=== PATIENT | female | born 1975 | race Asian ===

== ENCOUNTER 2016-11-26 11:45 | Emergency (ER) | payer BC, OTHER ==
[2016-11-26 11:50] VITALS: BP 131/73; PULSE 79; TEMP 98.3; BMI 20.5
[2016-11-26] MEDS ORDERED: IBUPROFEN 400 MG TABLET (FP) PO ONE ×2 (12:27→12:29)
--- NOTE | 2016-11-26 12:27 | PDOC ---
History of Present Illness - General Chief Complaint: Pain Stated Complaint: TOOTHACHE, SWOLLEN GUMS Time Seen by Provider: 11/26/16 12:08 History Source: Patient - History of Present Illness Timing/Duration: other Severity: moderate Associated Symptoms: denies: fever/chills Past History - Past Medical History Allergies/Adverse Reactions: Allergies Allergy/AdvReac Type Severity Reaction Status Date / Time No Known Drug Allergies Allergy Verified 11/26/16 11:50 Home Medications: Ambulatory Orders NK [No Known Home Medication] 11/26/16 Anemia: No Asthma: Yes Cancer: No Cardiac Disorders: No CVA: No COPD: No CHF: No Dementia: No Diabetes: No GI Disorders: No Disorders: No HTN: No Hypercholesterolemia: No Liver Disease: No Seizures: No Thyroid Disease: No - Surgical History Abdominal Surgery: (OVARIAN FIBROIDS) Appendectomy: No Cholecystectomy: No Lung Surgery: Yes (INFECTION; PIECE "CUT OUT" FROM RIGHT) Orthopedic Surgery: Yes (ARTHROSCOPIC LEFT KNEE) - Psycho/Social/Smoking Cessation Hx Suicidal Ideation: No Smoking History: Never smoked Have you smoked in the past 12 months: No Information on smoking cessation initiated: No Hx Alcohol Use: No Drug/Substance Use Hx: No Substance Use Type: None Hx Substance Use Treatment: No Review of Systems - Review of Systems Constitutional: No: Chills, Fever HEENTM: Yes: Dental Problems *Physical Exam - Vital Signs Last Vital Signs Temp Pulse Resp BP Pulse Ox 98.3 F 79 18 131/73 100 11/26/16 11:47 11/26/16 11:47 11/26/16 11:47 11/26/16 11:47 11/26/16 11:47 - Physical Exam General Appearance: Yes: Appropriately Dressed. No: Apparent Distress HEENT: positive: Normal Voice, Other (minimal swelling to R submandibular area w / corresponding ttp to gumline of R lower and premolar/1st molar, no fluctuance/ discharge) Neck: positive: Supple. negative: Lymphadenopathy (R), Lymphadenopathy (L) Respiratory/Chest: negative: Respiratory Distress Integumentary: positive: Dry, Warm Neurologic: positive: Fully Oriented, Alert, Normal Mood/Affect Medical Decision Making - Medical Decision Making 11/26/16 12:28 41-year-old female, denies any past medical history, here with toothache. Patient states pain located to right lower tooth 2 days ago, unsure exactly which tooth and has since noticed facial swelling on the right. No recent dental procedure, trauma, fever or chills. Pt well ap and stable w/ minimal swelling to R submandibular area w/ minimal ttp to gumline surrounding R lower 2nd premolar and 1st molar, no fluctuance/discharge. Concern for ? early abscess. Pain control and [facility] [place] 11/26/16 12:34 *DC/Admit/Observation/Transfer Diagnosis at time of Disposition: Tooth ache - Discharge Dispostion Disposition: HOME Condition at time of disposition: Stable - Patient Instructions Printed Discharge Instructions: DI for Dental Pain Additional Instructions: Please report to following dental clinic: [facility] [address] [place] [address]
== END 2016-11-26 12:31 | disposition home or self-care (01) ==
LOC: JERFT 11:45
DX: K08.89 Other specified disorders of teeth and supporting structures (principal)
CPT/HCPCS: 99281-25

== ENCOUNTER 2017-11-26 16:13 | Emergency (ER) | payer OTHER ==
--- NOTE | 2017-11-26 16:21 | PDOC ---
Rapid Medical Evaluation Time Seen by Provider: 11/26/17 16:17 Medical Evaluation: Allergies Allergy/AdvReac Type Severity Reaction Status Date / Time No Known Drug Allergies Allergy Verified 11/26/16 11:50 11/26/17 16:18 The patient presents with a chief complaint of: Accident at work, cut hand with knife. I have performed a brief in-person evaluation of this patient; Pertinent physical exam findings: 2cm Laceration to L thenar eminence. Able to flex and extend the thumb. Last tetanus 2010 I have ordered the following: Nothing The patient will proceed to the ED for further evaluation.
[2017-11-26 16:22] VITALS: BP 127/77; PULSE 75; TEMP 98.6; BMI 19.7
--- NOTE | 2017-11-26 17:08 | PDOC ---
History of Present Illness - General Chief Complaint: Injury Stated Complaint: LACERATION Time Seen by Provider: 11/26/17 16:17 History Source: Patient - History of Present Illness Timing/Duration: reports: this afternoon Past History - Past Medical History Allergies/Adverse Reactions: Allergies Allergy/AdvReac Type Severity Reaction Status Date / Time No Known Drug Allergies Allergy Verified 11/26/17 16:22 Home Medications: Ambulatory Orders NK [No Known Home Medication] 11/26/16 Anemia: No Asthma: Yes Cancer: No Cardiac Disorders: No CVA: No COPD: No CHF: No Dementia: No Diabetes: No GI Disorders: No Disorders: No HTN: No Hypercholesterolemia: No Liver Disease: No Seizures: No Thyroid Disease: No - Surgical History Abdominal Surgery: (OVARIAN FIBROIDS) Appendectomy: No Cholecystectomy: No Lung Surgery: Yes (INFECTION; PIECE "CUT OUT" FROM RIGHT) Orthopedic Surgery: Yes (ARTHROSCOPIC LEFT KNEE) - Suicide/Smoking/Psychosocial Hx Smoking History: Never smoked Have you smoked in the past 12 months: No Information on smoking cessation initiated: No Hx Alcohol Use: No Drug/Substance Use Hx: No Substance Use Type: None Hx Substance Use Treatment: No Review of Systems - Review of Systems Neurological: No: Numbness, Tingling, Weakness *Physical Exam - Vital Signs Last Vital Signs Temp Pulse Resp BP Pulse Ox 98.6 F 75 17 127/77 100 11/26/17 16:19 11/26/17 16:19 11/26/17 16:19 11/26/17 16:19 11/26/17 16:19 - Physical Exam General Appearance: Yes: Appropriately Dressed. No: Apparent Distress HEENT: positive: Normal Voice Neck: positive: Supple Respiratory/Chest: negative: Respiratory Distress Extremity: positive: Other (~1cm linear lac down to dermis to volar asoect of base of L thumb, bleeding controlled w/ pressure, FROMI, sensation intact) Integumentary: negative: Dry, Warm Neurologic: positive: Fully Oriented, Alert, Normal Mood/Affect Procedures - Laceration/Wound Repair Left Finger Wound Length: to 2.5 cm Wound Explored: clean Wound's Depth, Shape: superficial Irrigated w/ Saline: Yes Betadine Prep: Yes Anesthesia: 1% Lidocaine (6) Wound Repaired With: Sutures Suture Size/Type: 5:0, nylon Number of Sutures: 8 Sterile Dressing Applied: Yes Medical Decision Making - Medical Decision Making 11/26/17 17:05 42-year-old female, no significant history. Last tetanus in 2010, here with left thumb lac while handling knife at work today. No sensory changes, or weakness. States knife "sliced" finger. See exam Uncomplicated thumb lac No e/o tendon injury -tetanus UTD -lac repair -wound check in 48 hrs as needed 11/26/17 17:42 *DC/Admit/Observation/Transfer Diagnosis at time of Disposition: Laceration of left thumb Qualifiers: Encounter type: initial encounter Damage to nail status: without damage Foreign body presence: without foreign body Qualified Code(s): S61.012A - Laceration without foreign body of left thumb without damage to nail, initial encounter - Discharge Dispostion Disposition: HOME Condition at time of disposition: Good - Referrals - Patient Instructions Printed Discharge Instructions: DI for Laceration Repair Additional Instructions: Keep dressing in place for at least 24-48 hours after which one can be opened to air. You can gently cleaned wound with mild soap and water after 24 hours to prevent crusting over the suture knots. You can also apply an antibiotic ointment twice a day until sutures are removed. Return for redness, discharge or fever Sutures are removed in 7 days - Post Discharge Activity
== END 2017-11-26 17:43 | disposition home or self-care (01) ==
LOC: JERFT 16:13
PROC: 0HQGXZZ Repair Left Hand Skin, External Approach (ICD-10-PCS; principal; 2017-11-26)
DX: S61.012A Laceration without foreign body of left thumb without damage to nail, initial encounter (principal); W26.0XXA Contact with knife, initial encounter; Y93.89 Activity, other specified; Y92.512 Supermarket, store or market as the place of occurrence of the external cause; Y99.0 Civilian activity done for income or pay
CPT/HCPCS: 99281-25

== ENCOUNTER 2018-09-28 09:18 | Emergency (ER) | payer OTHER ==
[2018-09-28 09:24] VITALS: BMI 19.2
--- NOTE | 2018-09-28 09:30 | PDOC ---
History of Present Illness - General Chief Complaint: Vaginal Bleeding Stated Complaint: POST OP PAIN/BLEEDING Time Seen by Provider: 09/28/18 09:25 History Source: Patient - History of Present Illness Initial Comments: 09/28/18 09:29 Pt is a 43yo f with PMH of uterine fibriods, R ovarian endometrioma s/p oopherectomy 2 days ago, Lupus, asthma presenting to ED with vaginal bleeding. Pt had laproscopic oopherectomy 2 days ago on Saturday and had some bleeding, bleeding stopped yesterday but started again at 4am today. Pt says she has soaked 3 pads already, no clots. She is having LLQ abdominal pain which radiates sometimes to the RLQ. Pain is 8/10, constant. Helped by taking Excedrin. She denies fevers, n/v/d, chest pain, sob, lightheadedness, urinary symptoms. She has not had a bowel movement since the surgery but is still passing gas. 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: Rebecca PMH: see hpi PSH: see hpi Meds: none Social: denies Allergies: nkda 09/28/18 09:55 09/28/18 11:13 09/28/18 13:06 Past History - Past Medical History Allergies/Adverse Reactions: Allergies Allergy/AdvReac Type Severity Reaction Status Date / Time No Known Drug Allergies Allergy Verified 09/28/18 09:23 Home Medications: Ambulatory Orders NK [No Known Home Medication] 11/26/16 Anemia: No Asthma: Yes Cancer: No Cardiac Disorders: No CVA: No COPD: No CHF: No Dementia: No Diabetes: No GI Disorders: No Disorders: No HTN: No Hypercholesterolemia: No Liver Disease: No Seizures: No Thyroid Disease: No - Surgical History Abdominal Surgery: (OVARIAN FIBROIDS) Appendectomy: No Cholecystectomy: No Lung Surgery: Yes (INFECTION; PIECE "CUT OUT" FROM RIGHT) Orthopedic Surgery: Yes (ARTHROSCOPIC LEFT KNEE) - Suicide/Smoking/Psychosocial Hx Smoking History: Never smoked Have you smoked in the past 12 months: No Hx Alcohol Use: No Drug/Substance Use Hx: No Substance Use Type: None Hx Substance Use Treatment: No *Physical Exam - Vital Signs Last Vital Signs Temp Pulse Resp BP Pulse Ox 99 F 67 18 134/72 100 09/28/18 09:21 09/28/18 09:21 09/28/18 09:21 09/28/18 09:21 09/28/18 09:21 - Physical Exam Female Pelvic Exam: positive: normal external exam, cervical os closed, CMT, vaginal bleeding (scant vaginal bleeding. ) Gastrointestinal/Abdominal: positive: Tenderness (LLQ and RLQ) ED Treatment Course - LABORATORY CBC & Chemistry Diagram: 09/28/18 10:00 09/28/18 10:00 Medical Decision Making - Medical Decision Making 09/28/18 11:[address] Hopkins who is bridge ironworker helper for Dr. Castrejon. Recommends seeing if H/H is wnl. If it is, pt can be dc home. Thinks bleeding may be due to period because surgeries can offset normal cycle. 09/28/18 13:02 CT pneumoperitoneum Called tahir Obando with d/c home. close follow up recommended. *DC/Admit/Observation/Transfer Diagnosis at time of Disposition: Vaginal bleeding - Discharge Dispostion Disposition: HOME Condition at time of disposition: Good Decision to Admit order: No - Referrals Referrals: Becca Marcum MD [Primary Care Provider] - Leon Fernandez MD [Staff Physician] - - Patient Instructions Printed Discharge Instructions: DI for Vaginal Bleeding Additional Instructions: You were seen here today for vaginal bleeding and abdominal pain. Your tests were normal. I spoke to Dr. Orlando who is covering for Dr. Fernandez and she says that the bleeding could be due to your period. You can continue to take medications for pain control as needed. I recommend following up with Dr. Fernandez's office in the next few days to have further evaluation of the bleeding. Please come back to the emergency room if pain gets worse, you are unable to pass gas, your bleeding gets worse, you develop fever, you start vomiting or if any new concerning symptom develops. Thank you - Post Discharge Activity
[2018-09-28] MEDS ORDERED: SODIUM CHLORIDE 1,000 ML IV STA (09:55)
[2018-09-28] MEDS ORDERED: morphine CARPU-JECT 4 MG/1 ML DISP.SYRIN IVPUSH ONE (09:55)
--- NOTE | 2018-09-28 09:58 | PDOC ---
Attending Attestation - Resident Resident Name: Sa Elizaira - ED Attending Attestation I have performed the following: I have examined & evaluated the patient, The case was reviewed & discussed with the resident, I agree w/resident's findings & plan, Exceptions are as noted - HPI HPI: 09/28/18 09:55 43 yo F s/p right oopherectomy for ovarian fibroids here post op day 2 with c/ o vaginal bleeding and left lower quadrant pain. no f/c no n/v no cp no sob no urinary complaints. has taken excedrin for pain mild releif. feels vaginal bleeding is more than a period. ob/ obstetrician and gynaecologist Dr Hale 09/28/18 12:45 - Physicial Exam PE: 09/28/18 09:56 awake alert lungs clear bilaterally heart rrr no mrg abd soft llq ttp. incision cdi. pelvic scant blood in vaginal vault, small blood coming from os, left adnexal tenderness. skin warm and dry. no edema. nuero alert oriented x 3. - Medical Decision Making 09/28/18 09:58 43 yo 2 days post op left oopherectomy wiht vag bleeding and llq pain. differential post op complication such as bleeding, infecition, bowel injury. plan ua ucg labs ct a/p. will d/w surgeon dr. ochoa. pain control.
[2018-09-28 09:59] LABS: HCG,QUALITATIVE URINE Negative; URINE APPEARANCE CLEAR; URINE BILIRUBIN NEGATIVE (<2.0 mg/dL); URINE COLOR LTYELLOW; URINE GLUCOSE (UA) NEGATIVE (NEGATIVE); URINE KETONE NEGATIVE (NEGATIVE); URINE LEUK ESTERASE NEGATIVE (NEGATIVE); URINE NITRITE NEGATIVE (NEGATIVE); URINE PROTEIN NEGATIVE (NEGATIVE); URINE UROBILINOGEN NEGATIVE mg/dL (0.2-1.0)
[2018-09-28] MEDS ORDERED: MORPHINE SULFATE 2 MG/ML VIAL ONE (09:59)
[2018-09-28 10:14] LABS: BASO % 0.5 % (0-2.0); HEMATOCRIT 39.2 % (32.4-45.2); HEMOGLOBIN 13.2 GM/dL (10.7-15.3); LYMPH % 26.9 % (8-40); MCH 31.1 pg (25.7-33.7); MCHC 33.7 g/dl (32.0-36.0); MEAN CELL VOLUME 92.5 fl (80-96); MEAN PLT VOLUME 9.4 fl (7.5-11.1); MONO % 7.2 % (3.8-10.2); NEUT % 65.4 % (42.8-82.8); PLATELET COUNT 232 K/MM3 (134-434); RBC 4.24 M/mm3 (3.60-5.2); RDW 13.2 % (11.6-15.6); WHITE BLOOD COUNT 7.1 K/mm3 (4.0-10.0)
[2018-09-28 10:51] LABS: EPI CELLS RARE /HPF (FEW)
[2018-09-28 11:10] LABS: ALBUMIN 3.5 g/dl (3.4-5.0); ALK PHOS 51 U/L (45-117); ANION GAP 7 MMOL/L (8-16); BILIRUBIN,TOTAL 0.4 mg/dL (0.2-1); BLOOD UREA NITROGEN 8 mg/dL (7-18); CALCIUM 8.9 mg/dL (8.5-10.1); CHLORIDE 104 mmol/L (98-107); CO2 25 mmol/L (21-32); CREATININE 0.5 mg/dL (0.55-1.3); GLUCOSE,RANDOM 90 mg/dL (74-106); SGOT/AST 29 U/L (15-37); SGPT/ALT 33 U/L (13-61); SODIUM 137 mmol/L (136-145)
[2018-09-28] MEDS ORDERED: KETOROLAC TROMETHAMINE 30 MG/1 ML VIAL IVPUSH ONE (13:02)
[2018-09-28] MEDS ORDERED: KETOROLAC TROMETHAMINE 30 MG/1 ML VIAL ONE (13:40)
[2018-09-28 13:58] VITALS: BP 123/56; PULSE 78; TEMP 98.6
== END 2018-09-28 13:55 | disposition home or self-care (01) ==
LOC: JER 09:18
PROC: 3E033NZ Introduction of Analgesics, Hypnotics, Sedatives into Peripheral Vein, Percutaneous Approach (ICD-10-PCS; principal; 2018-09-28)
PROC: 3E0333Z Introduction of Anti-inflammatory into Peripheral Vein, Percutaneous Approach (ICD-10-PCS; 2018-09-28)
DX: G89.18 Other acute postprocedural pain (principal); N93.8 Other specified abnormal uterine and vaginal bleeding; Z90.721 Acquired absence of ovaries, unilateral
CPT/HCPCS: 36415; 74177-TC; 80053; 81003; 81015; 84703; 85025; 96374; 96375; 99282-25; J7030

== ENCOUNTER 2019-02-10 04:56 | Day surgery (SDC) | payer OTHER ==
[2019-02-09 14:21] VITALS: BMI 20.5
--- NOTE | 2019-02-09 17:25 | HP ---
Admitting History and Physical - Admission Chief Complaint: Nasal obstruction History of Present Illness: 43 yo female with long hx of nasal congestion/difficulty breathing unresponsive to medical therapy. She present for surgical intervention. History Source: Patient Limitations to Obtaining History: No Limitations - Past Medical History Pulmonary: Yes: Asthma ...LMP: 02/07/19 ENT: Yes: Allergic Rhinitis - Past Surgical History Past Surgical History: Yes: Tonsillectomy - Smoking History Smoking history: Never smoked Have you smoked in the past 12 months: No - Alcohol/Substance Use Hx Alcohol Use: No Home Medications - Allergies Allergies/Adverse Reactions: Allergies Allergy/AdvReac Type Severity Reaction Status Date / Time No Known Drug Allergies Allergy Verified 02/09/19 14:24 - Home Medications Home Medications: Ambulatory Orders Budesonide/Formeterol Fumarate [SYMBICORT 80/4.5mcg -] 1 inh PO HS 02/09/19 Multivitamin [One-Daily Multi-Vitamin] 1 each PO DAILY 02/09/19 Home Medications (free text): Fluticasone spray Review of Systems - Review of Systems HENT: reports: Nasal Congestion Physical Examination Constitutional: Yes: Well Nourished, No Distress Eyes: Yes: WNL HENT: Yes: Nasal Congestion, Other (deviated septum with bilateral inferior turbinate hypertrophy) Respiratory: Yes: WNL Musculoskeletal: Yes: WNL Extremities: Yes: WNL Neurological: Yes: Cran Nerves II-XII Intact Problem List - Problems (1) Deviated nasal septum Assessment/Plan: Pt with nasal obstruction due to septal deviation and turbinate hypertrophy who presents for septoplasty/SMR of bilateral inferior turbinates. Code(s): J34.2 - DEVIATED NASAL SEPTUM Assessment/Plan To OR
[2019-02-10] MEDS ORDERED: LIDOCAINE 1%-EPI 1:100,000 30 ML MDV IJ ONE (07:22)
[2019-02-10] MEDS ORDERED: BACITRACIN 15 GM TUBE TOPICAL OINTMENT ONE (07:22)
--- NOTE | 2019-02-10 07:56 | HP ---
History & Physical Update - History History: No Change - Physical Physical: No Change - Assessment Assessment: No Change - Plan Plan: No Change
[2019-02-10] MEDS ORDERED: ONDANSETRON 4 MG/2 ML VIAL IVPUSH PRN (07:59)
[2019-02-10] MEDS ORDERED: oxyCODONE HCL 5 MG TABLET PO PRN (07:59)
[2019-02-10] MEDS ORDERED: LACTATED RINGERS SOLUTION 1,000 ML IV SCH (08:00)
[2019-02-10] MEDS ORDERED: ROCURONIUM BROMIDE 50 MG/5 ML VIAL ONE (08:02)
[2019-02-10] MEDS ORDERED: COCAINE HCL 4% TOPICAL SOLUTION 4 ML BOTTLE TP ONE ×2 (08:02→08:17)
[2019-02-10] MEDS ORDERED: PROPOFOL 20 ML ONE (08:02)
[2019-02-10] MEDS ORDERED: MIDAZOLAM HCL 2 MG/2 ML SINGLE DOSE VIAL ONE (08:02)
[2019-02-10] MEDS ORDERED: LIDOCAINE 1%/EPI 1:100000 (20 ML MULTI DOSE VIAL) IJ ONE ×2 (08:18)
[2019-02-10] MEDS ORDERED: DEXAMETHASONE SOD PHOSPHATE 4 MG/1 ML VIAL ONE (08:21)
[2019-02-10] MEDS ORDERED: ePHEDrine SULFATE 50 MG/1 ML AMPULE ONE (08:42)
[2019-02-10] MEDS ORDERED: BACITRACIN/POLYMYXIN B SULFATE 10 GM BOTTLE TP ONE (09:13)
[2019-02-10] MEDS ORDERED: ACETAMINOPHEN INJECTION 100 ML IVPB ONE (10:25)
[2019-02-10] MEDS ORDERED: ACETAMINOPHEN 1000 MG/100 ML VIAL (NON FORMULARY) IVPB ONE (10:33)
--- NOTE | 2019-02-10 11:01 | OP ---
DATE OF OPERATION: 02/10/2019 PREOPERATIVE DIAGNOSES: 1. Nasal obstruction secondary to deviated nasal septum. 2. Bilateral inferior turbinate hypertrophy with obstruction. POSTOPERATIVE DIAGNOSES: 1. Nasal obstruction secondary to deviated nasal septum. 2. Bilateral inferior turbinate hypertrophy with obstruction. PROCEDURES PERFORMED: 1. Septoplasty. 2. Submucous resection of bilateral inferior turbinates. SURGEON: Nayla Jasso M.D. ANESTHESIA: General. ANESTHESIOLOGIST: Radha Prado, REF-CRN ESTIMATED BLOOD LOSS: 10 mL. FINDINGS: 1. Markedly deviated septum with a large bony spur. 2. Bilateral inferior turbinate hypertrophy with obstruction. INDICATIONS: The patient is a 43-year-old female with chronic nasal obstruction unrelieved with medical therapy, who presents for surgical intervention. The risks, benefits and alternatives of the procedure were all explained to the patient. Questions were answered and consent was signed. DESCRIPTION OF PROCEDURE: After obtaining informed consent, the patient was brought to the operating room and placed on the OR table in the supine position. After the induction of general endotracheal anesthesia, he was prepped and draped in the usual sterile fashion. Pledgets soaked in 4% cocaine were placed in the nasal cavity, followed by injection of 1% lidocaine with epinephrine into the nasal septal flaps and inferior turbinates; 6 mL was used. After allowing time for anesthesia to take effect, a No. 15 blade was used to make a left hemitransfixion incision. A left mucoperichondrial flap was raised up over the significant bony spur in deviation. The flap was raised intact. Anterior incision was made through the septal cartilage. A large dorsal anterior L strut was left intact. Opposite side flap was raised. Once the deviated portion of the cartilaginous bony septum was isolated using swivel knife, the cartilaginous portion was removed. Using an osteotome and bony rongeur, the large obstructing spur was removed as well. Once removed, the airway appeared much improved. Flaps appeared intact. No active bleeding was seen. The hemitransfixion incision was closed with 4-0 chromic suture, followed by placement of a quilting stitch into the nasal septal flaps with 4-0 plain gut suture. Once finished, attention was then turned to the inferior turbinates. The left inferior turbinate was medialized. A stab incision was made at the anterior tip. Submucosal dissection was carried out. The anterior portion of the turbinate bone was removed, followed by intramural suction Bovie coagulation. The flaps were then reapproximated and the turbinate lateralized. Attention was then turned to the right turbinate, where again the turbinate was medialized. A stab incision was made at the anterior tip. Submucosal dissection was carried out, with removal of the anterior portion of the turbinate bone. Intramural cauterization was then performed. The turbinate flaps were approximated and lateralized. No active bleeding was seen. Firm Medipore nasal packs were placed in the nasal cavity, followed by Telfa at the anterior tip. Tip dressing was placed. The patient was then awoken from anesthesia, extubated and transferred to the recovery room awake, alert, in stable condition. NAYLA JASSO M.D. [id number]
[2019-02-10] MEDS ORDERED: oxyCODONE HCL 5 MG TABLET ONE (13:47)
[2019-02-10] MEDS ORDERED: oxyCODONE HCL 5 MG TABLET PO ONE (13:50)
[2019-02-10] MEDS ORDERED: ONDANSETRON 4 MG/2 ML VIAL ONE (15:04)
[2019-02-10 18:40] VITALS: BP 114/67; PULSE 74; TEMP 98
--- NOTE | 2019-02-11 13:42 | PATH ---
Surgical Pathology Report Patient Name: MONIQUE MERRILL Med. Rec. #: [id number] /Age/Gender: 1975 (Age: 43) / F Account: [id number] Location: [facility] SURGICAL Taken: 02/10/2019 Received: 02/10/2019 Reported: 02/11/2019 Physicians: Leonard Jasso M.D. Specimen(s) Received TURBINATE AND NASAL SEPTUM Clinical History Deviated nasal septum and enlarged turbinates Final Diagnosis NASAL SEPTUM AND TURBINATES, PARTIAL EXCISION: PORTIONS OF BONE AND CARTILAGE CONSISTENT WITH NASAL SEPTUM AND TURBINATE. Electronically Signed Jossue Davis M.D. Gross Description Received in formalin labeled "turbinates and nasal septum," is a 3.0 x 2.5 x 0.3 cm aggregate of lundy fragments of bone and cartilage. A insurance verification representative portion is submitted in one cassette, following decalcification. /02/10/2019 [facility]02/10/2019
== END 2019-02-10 16:15 | disposition home or self-care (01) ==
LOC: JASU-SURG 04:56
PROVIDERS: ATTEND Otolaryngology
PROC: 09TL8ZZ Resection of Nasal Turbinate, Via Natural or Artificial Opening Endoscopic (ICD-10-PCS; 2019-02-10)
PROC: 09BM8ZZ Excision of Nasal Septum, Via Natural or Artificial Opening Endoscopic (ICD-10-PCS; principal; 2019-02-10 08:00)
DX: J34.2 Deviated nasal septum (principal); J34.3 Hypertrophy of nasal turbinates
CPT/HCPCS: 84703; 88304-TC; 88311-TC; 94760; J0131

== ENCOUNTER 2019-03-06 12:59 | Emergency (ER) | payer OTHER ==
[2019-03-06 13:02] VITALS: BP 128/84; PULSE 90; TEMP 98.3; BMI 20.5
[2019-03-06] MEDS ORDERED: LIDOCAINE HCL 2% (20ML MULTI-DOSE VIAL) NR ONE (13:06)
[2019-03-06] MEDS ORDERED: AMOX TR/POT CLAV 875MG/125MG TABLETS (FP) PO ONE (14:43)
--- NOTE | 2019-03-06 14:49 | PDOC ---
History of Present Illness - General Chief Complaint: Laceration Stated Complaint: i cut my finger Time Seen by Provider: 03/06/19 13:21 - History of Present Illness Initial Comments: 03/06/19 14:45 43 years old with no significant past medical history presents to the emergency department with laceration/avulsion injury to her right index finger. Patient was working at a [employer] using a meatcutter slice the distal tip of her right index finger off oblique avulsion through approximately 50% of the nail does not extend to the joint. Complaining of moderate pain persistent constant with some active bleeding. Past History - Past Medical History Allergies/Adverse Reactions: Allergies Allergy/AdvReac Type Severity Reaction Status Date / Time No Known Drug Allergies Allergy Verified 02/10/19 07:11 Home Medications: Ambulatory Orders Amoxicillin/Potassium Clav [Augmentin 875-125 Tablet] 1 each PO BID #14 tablet 03/06/19 Anemia: No Asthma: Yes Cancer: No Cardiac Disorders: No CVA: No COPD: No CHF: No Dementia: No Diabetes: No GI Disorders: No Disorders: No HTN: No Hypercholesterolemia: No Liver Disease: No Seizures: No Thyroid Disease: Yes - Surgical History Abdominal Surgery: (OVARIAN FIBROIDS) Appendectomy: No Cholecystectomy: No Lung Surgery: Yes (INFECTION; PIECE "CUT OUT" FROM RIGHT) Orthopedic Surgery: Yes (ARTHROSCOPIC LEFT KNEE) - Suicide/Smoking/Psychosocial Hx Smoking History: Never smoked Have you smoked in the past 12 months: No Hx Alcohol Use: No Drug/Substance Use Hx: No Substance Use Type: None Hx Substance Use Treatment: No Review of Systems - Review of Systems Comments:: 03/06/19 14:46 ROS: A complete review of 10 out of 10 review of systems is taken and is negative apart from what is previously mentioned below and in the HPI. *Physical Exam - Vital Signs Last Vital Signs Temp Pulse Resp BP Pulse Ox 98.3 F 90 16 128/84 100 03/06/19 13:00 03/06/19 13:00 03/06/19 13:00 03/06/19 13:00 03/06/19 13:00 - Physical Exam Comments: 03/06/19 14:47 Vitals: Triage Vital signs reviewed General Appearance: no acute distress, well nourished well developed, Head: Atraumatic, Skin: Warm and dry, avulsion with loss of tissue approximately 1 cm less than 50% of distal finger tip obliquely through the nail extending above the DIP joint on the medial aspect of the right index finger. Active bleeding. Neuro: Strength intact to all extremities, Sensation intact to all extremities, gait normal Psych: normal mood, normal affect ED Treatment Course - RADIOLOGY Radiology Studies Ordered: Category Date Time Status FINGER(S) RIGHT [RAD] Stat Radiology 03/06/19 13:22 Completed Medical Decision Making - Medical Decision Making 03/06/19 14:48 On the universal sterile conditions a digital nerve block was performed to the patient's right index finger providing adequate anesthesia Irrigated and Betadine prep Able to palpate distal bone through middle finger. Surgicel dressing placed for hemostasis pressure dressing applied with good hemostasis x-ray suggestive of tuft fracture Case discussed with hand/orthopedics . Patient will require revision given exposure of bone. Tetanus up-to-date. Patient treated with Augmentin we'll provide patient with 7 day course of antibiotic she'll follow-up with hand on Saturday she'll return to ED for any signs of infection severe worsening symptoms or for any concerns. *DC/Admit/Observation/Transfer Diagnosis at time of Disposition: Laceration - Discharge Dispostion Condition at time of disposition: Stable Decision to Admit order: No - Prescriptions Prescriptions: Amoxicillin/Potassium Clav [Augmentin 875-125 Tablet] 1 each PO BID #14 tablet - Referrals Referrals: Becca Marcum MD [Primary Care Provider] - - Patient Instructions Printed Discharge Instructions: DI for Avulsion Fracture, DI for Nail Avulsion Injury Additional Instructions: Take Augmentin as prescribed. Do not get dressing wet. Keep elevated as much as possible. Tylenol as directed on package as needed for pain. Follow-up on Saturday with Dr. Laureano [id number]. Here at [place]. Return to the emergency department immediately for any severe pain redness that is spreading down the finger fever signs of infection or for any concerns - Post Discharge Activity
[2019-03-06] MEDS ORDERED: AMOX TR/POT CLAV 875MG/125MG TABLETS (FP) ONE (15:06)
== END 2019-03-06 15:09 | disposition home or self-care (01) ==
LOC: FER 12:59
PROC: 3E0T3BZ Introduction of Anesthetic Agent into Peripheral Nerves and Plexi, Percutaneous Approach (ICD-10-PCS; principal; 2019-03-06)
DX: S62.660B Nondisplaced fracture of distal phalanx of right index finger, initial encounter for open fracture (principal); W31.82XA Contact with other commercial machinery, initial encounter; Y93.G1 Activity, food preparation and clean up; Y92.512 Supermarket, store or market as the place of occurrence of the external cause; Y99.0 Civilian activity done for income or pay
CPT/HCPCS: 73140-TC-RT-FY; 99282-25

== ENCOUNTER 2019-03-08 19:36 | Inpatient (IN) | payer OTHER ==
[2019-03-08] MEDS ORDERED: VANCOMYCIN 1,000 MG in DEXTROSE 5%-WATER - 250 ML IVPB ONE (20:06)
[2019-03-08] MEDS ORDERED: SODIUM CHLORIDE 1,000 ML IV STA (20:07)
[2019-03-08] MEDS ORDERED: AMPICILLIN NA/SULBACTAM NA 3 GM in SODIUM CHLORIDE 100 ML IVPB ONE (20:07)
[2019-03-08] MEDS ORDERED: AMPICILLIN NA/SULBACTAM NA 3 GM VIAL ONE (20:17)
[2019-03-08] MEDS ORDERED: VANCOMYCIN 1,000 MG VIAL (RESTRICTED TO ID ONLY) ONE (20:17)
--- NOTE | 2019-03-08 20:31 | PDOC ---
Documentation entered by Rena Vasques SCRIBE, acting as scribe for Timi Velázquez MD. Timi Velázquez MD: This documentation has been prepared by the karoibLayo carbajal Collisia, SCRIBE, under my direction and personally reviewed by me in its entirety. I confirm that the documentation accurately reflects all work, treatment, procedures, and medical decision making performed by me. History of Present Illness - General Chief Complaint: Pain, Acute Stated Complaint: PAIN POST SUTURES Time Seen by Provider: 03/08/19 19:43 History Source: Patient, Old Records Exam Limitations: No Limitations - History of Present Illness Initial Comments: 03/08/19 20:50 43-year-old female history of lupus, not on medications, presents for persistent worsening pain of her right second digit. Patient was here 2 days ago for axially slicing the tip of her right second digit with a meat market manager. At that time, the wound was cleansed and patient was discharged with Augmentin. The patient has a appointment with surgeon, Dr. Laureano, this Saturday. However, the pain was persistent so the patient can the ED. No fevers. Past History - Past Medical History Allergies/Adverse Reactions: Allergies Allergy/AdvReac Type Severity Reaction Status Date / Time No Known Drug Allergies Allergy Verified 03/08/19 19:38 Home Medications: Ambulatory Orders Amoxicillin/Potassium Clav [Augmentin 875-125 Tablet] 1 each PO BID #14 tablet 03/06/19 Anemia: No Asthma: Yes Cancer: No Cardiac Disorders: No CVA: No COPD: No CHF: No Dementia: No Diabetes: No GI Disorders: No Disorders: No HTN: No Hypercholesterolemia: No Liver Disease: No Seizures: No Thyroid Disease: Yes - Surgical History Abdominal Surgery: (OVARIAN FIBROIDS) Appendectomy: No Cholecystectomy: No Lung Surgery: Yes (INFECTION; PIECE "CUT OUT" FROM RIGHT) Orthopedic Surgery: Yes (ARTHROSCOPIC LEFT KNEE) - Suicide/Smoking/Psychosocial Hx Smoking History: Never smoked Have you smoked in the past 12 months: No Information on smoking cessation initiated: No Hx Alcohol Use: No Drug/Substance Use Hx: No Substance Use Type: None Hx Substance Use Treatment: No *Physical Exam - Vital Signs Last Vital Signs Temp Pulse Resp BP Pulse Ox 98 F 73 16 130/90 100 03/08/19 19:39 03/08/19 19:39 03/08/19 19:39 03/08/19 19:39 03/08/19 19:39 - Physical Exam Comments: 03/08/19 20:50 GENERAL: Awake, alert, and fully oriented, in no acute distress HEAD: No signs of trauma EYES: PERRLA, EOMI, sclera anicteric, conjunctiva clear ENT: Auricles normal inspection, hearing grossly normal, nares patent, oropharynx clear without exudates. Moist mucosa NECK: Normal ROM, supple, no lymphadenopathy, JVD, or masses LUNGS: Breath sounds equal, clear to auscultation bilaterally. No wheezes, and no crackles HEART: Regular rate and rhythm, normal S1 and S2, no murmurs, rubs or gallops ABDOMEN: Soft, nontender, normoactive bowel sounds. No guarding, no rebound. No masses EXTREMITIES:(+)oozing avulsion wound to 2nd right digit with partially missing nail bed, diffuse erythema to right 2nd digit. Sensation intact of the median, radian and ulnar aspect. 2+radial pulses, fully extend and flexion of digits of right hand. No sausage digit. No tenderness to palpation along flexor sheath. No pain with passive extension. Normal range of motion, no edema. No clubbing or cyanosis. No cords. NEUROLOGICAL: Cranial nerves II through XII grossly intact. Normal speech, normal gait SKIN: Warm, Dry, normal turgor, no rashes or lesions noted. Procedures - Splinting Splint Location: Right: Hand Pre-Proc Neuro Vasc Exam: normal Hand-Made Type: orthoglass Splint Type: Yes: Volar Post-Proc Neuro Vasc Exam: normal Nadeem Bandage: 4" Sling: No Complications: No ED Treatment Course - LABORATORY CBC & Chemistry Diagram: 03/08/19 20:16 03/08/19 20:16 Medical Decision Making - Medical Decision Making 03/08/19 20:19 A portion of this note was documented by scribe services under my direction. I have reviewed the details of the note, within reason, and agree with the documentation with the following case summary and management plan written by me. Patient treated in the ED. Nursing notes are reviewed and incorporated into the medical decision-making. Vital signs reviewed. Peripheral IV access obtained by the nurse, laboratory studies are drawn and sent, reviewed and interpreted by myself. Vital Signs Temp Pulse Resp BP Pulse Ox 98 F 73 16 130/90 100 03/08/19 19:39 03/08/19 19:39 03/08/19 19:39 03/08/19 19:39 03/08/19 19:39 43-year-old female history of lupus, not on medications, presents for persistent worsening pain of her right second digit. Patient was here 2 days ago for axially slicing the tip of her right second digit with a meat market manager. At that time, the wound was cleansed and patient was discharged with Augmentin. The patient has a appointment with surgeon, Dr. Laureano, this Saturday. However, the pain was persistent so the patient can the ED. No fevers. Patient's finger appears to have cellulitis despite taking Augmentin as an outpatient. However, patient has negative Kanavel sign in at this moment no indication of Unasyn a Vitas. Patient is neurovascular intact. Patient failed outpatient management so we'll give IV vancomycin and IV Unasyn. We'll obtain blood cultures and admit the patient to the hospital. Case is discussed with Dr. Laureano. He will see the patient as an inpatient consult. He requests that I elevate the hand as well as the place a volar splint on the patient's hand. 03/08/19 21:30 CBC, BMP 03/08/19 20:16 03/08/19 20:16 03/08/19 22:04 Pt given ring block for pain control. Pt's pain has improved. Volar splint applied. *DC/Admit/Observation/Transfer Diagnosis at time of Disposition: Finger injury Qualifiers: Encounter type: initial encounter Laterality: right Qualified Code(s): S69.91XA - Unspecified injury of right wrist, hand and finger(s), initial encounter Cellulitis Qualifiers: Site of cellulitis: extremity Site of cellulitis of extremity: upper extremity Laterality: right Qualified Code(s): L03.113 - Cellulitis of right upper limb - Discharge Dispostion Condition at time of disposition: Stable Decision to Admit order: Yes - Referrals - Patient Instructions - Post Discharge Activity
[2019-03-08 20:59] LABS: BASO % 0.5 % (0-2.0); EOS % 0.1 % (0-4.5); HEMATOCRIT 39.7 % (32.4-45.2); HEMOGLOBIN 12.8 GM/dl (10.7-15.3); LYMPH % 50.3 % (8-40); MCH 29.6 pg (25.7-33.7); MCHC 32.2 g/dl (32.0-36.0); MEAN CELL VOLUME 91.7 fl (80-96); MEAN PLT VOLUME 10.3 fl (7.5-11.1); NEUT % 40.1 % (42.8-82.8); PLATELET COUNT 272 K/MM3 (134-434); RBC 4.33 M/mm3 (3.60-5.2); RDW 12.9 % (11.6-15.6); WHITE BLOOD COUNT 6.4 K/mm3 (4.0-10.8)
[2019-03-08 21:03] LABS: ALBUMIN 4.6 g/dl (3.4-5.0); ALK PHOS 76 U/L (45-117); ANION GAP 11 MMOL/L (8-16); BILIRUBIN,TOTAL 0.5 mg/dl (0.2-1); BLOOD UREA NITROGEN 14 mg/dl (7-18); CALCIUM 9.8 mg/dl (8.5-10); CHLORIDE 98 mmol/L (98-107); CO2 29 mmol/L (21-32); CREATININE 0.6 mg/dl (0.55-1.3); GLUCOSE,RANDOM 82 mg/dl (74-106); POTASSIUM 3.6 mmol/L (3.5-5.1); SGOT/AST 27 U/L (15-37); SGPT/ALT 23 U/L (13-61); SODIUM 138 mmol/L (136-145)
--- NOTE | 2019-03-08 22:52 | HP ---
CHIEF COMPLAINT: right second finger laceration PCP: HISTORY OF PRESENT ILLNESS: 43-year-old female history of lupus, not on medications s/p laceration to second right finger 3 days ago while cutting lettuce with grader green meat machine. She reported to ER and was prescribed augmentin and was told to f/u in hand surgery clinic-Dr. Laureano. Patient returned to hospital with worsening pain and erythema in 2nd right finger. Denied any fevers or chills. ER course was notable for: (1) unasyn (2) vancomycin (3) Recent Travel: no PAST MEDICAL HISTORY: Lupus- off medication PAST SURGICAL HISTORY: (ARTHROSCOPIC LEFT KNEE), Social History: Smoking:no Alcohol:no Drugs: no Family History:no Allergies No Known Drug Allergies Allergy (Verified 03/08/19 19:38) HOME MEDICATIONS: Home Medications Medication Instructions Recorded Amoxicillin/Potassium Clav 1 each PO BID #14 tablet 03/06/19 [Augmentin 875-125 Tablet] REVIEW OF SYSTEMS CONSTITUTIONAL: Absent: fever, chills, diaphoresis, generalized weakness, malaise, loss of appetite, weight change HEENT: Absent: rhinorrhea, nasal congestion, throat pain, throat swelling, difficulty swallowing, mouth swelling, ear pain, eye pain, visual changes CARDIOVASCULAR: Absent: chest pain, syncope, palpitations, irregular heart rate, lightheadedness , peripheral edema RESPIRATORY: Absent: cough, shortness of breath, dyspnea with exertion, orthopnea, wheezing, stridor, hemoptysis GASTROINTESTINAL: Absent: abdominal pain, abdominal distension, nausea, vomiting, diarrhea, constipation, melena, hematochezia GENITOURINARY: Absent: dysuria, frequency, urgency, hesitancy, hematuria, flank pain, genital pain MUSCULOSKELETAL: Absent: myalgia, joint swelling, back pain, neck pain Present - arthralgia, finger pain SKIN: Absent: rash, itching, pallor HEMATOLOGIC/IMMUNOLOGIC: Absent: easy bleeding, easy bruising, lymphadenopathy, frequent infections ENDOCRINE: Absent: unexplained weight gain, unexplained weight loss, heat intolerance, cold intolerance NEUROLOGIC: Absent: headache, focal weakness or paresthesias, dizziness, unsteady gait, seizure, mental status changes, bladder or bowel incontinence PSYCHIATRIC: Absent: anxiety, depression, suicidal or homicidal ideation, hallucinations. PHYSICAL EXAMINATION Vital Signs - 24 hr 03/08/19 19:39 Temperature 98 F Pulse Rate 73 Respiratory 16 Rate Blood Pressure 130/90 O2 Sat by Pulse 100 Oximetry (%) GENERAL: Awake, alert, and fully oriented, in no acute distress. HEAD: Normal with no signs of trauma. EYES: Pupils equal, round and reactive to light, extraocular movements intact, sclera anicteric, conjunctiva clear. No lid lag. EARS, NOSE, THROAT: Ears normal, nares patent, oropharynx clear without exudates. Moist mucous membranes. NECK: Normal range of motion, supple without lymphadenopathy, JVD, or masses. LUNGS: Breath sounds equal, clear to auscultation bilaterally. No wheezes, and no crackles. No accessory muscle use. HEART: Regular rate and rhythm, normal S1 and S2 without murmur, rub or gallop. ABDOMEN: Soft, nontender, not distended, normoactive bowel sounds, no guarding, no rebound, no masses. MUSCULOSKELETAL: Normal range of motion at all joints. No bony deformities or tenderness. No CVA tenderness. UPPER EXTREMITIES: second right finger distal phalynx avulsion, visible blood, erythema streaking proximally LOWER EXTREMITIES: 2+ pulses, warm, well-perfused. No calf tenderness. No peripheral edema. NEUROLOGICAL: Cranial nerves II-XII intact. Normal speech. Normal gait. PSYCHIATRIC: Cooperative. Good eye contact. Appropriate mood and affect. SKIN: Warm, dry, normal turgor, no rashes or lesions noted, normal capillary refill. Laboratory Results - last 24 hr 03/08/19 03/08/19 03/08/19 20:16 20:16 20:16 WBC 6.4 RBC 4.33 Hgb 12.8 Hct 39.7 MCV 91.7 MCH 29.6 MCHC 32.2 RDW 12.9 Plt Count 272 MPV 10.3 Absolute Neuts (auto) 2.6 Neutrophils % 40.1 L Lymphocytes % 50.3 H Monocytes % 9.0 Eosinophils % 0.1 Basophils % 0.5 Sodium 138 Potassium 3.6 Chloride 98 Carbon Dioxide 29 Anion Gap 11 BUN 14 Creatinine 0.6 Creat Clearance w eGFR 109.11 Random Glucose 82 Calcium 9.8 Total Bilirubin 0.5 AST 27 ALT 23 Alkaline Phosphatase 76 Total Protein 8.0 Albumin 4.6 Urine HCG, Qual Negative imaging studies reviewed ASSESSMENT/PLAN: #Right second finger distal phalynx avulsion from manager meat, infected soft tissue and probable osteomyelitis. Likely polymicrobial infection. Finger xray from 03/06 suggests tiny avulsion of tuft of bone. Failed outpatient augmentin. -admit to med/surg -Vancomycin IV -zosyn for broad spectrum coverage -esr -crp -ID consult -hand surgery consult -dressing changes -wound care -patient agrees for Tdap booster- denied getting in ER -tylenol po prn for pain -DVT ppx -scds -normal diet Visit type - Emergency Visit Emergency Visit: Yes ED Registration Date: 03/08/19 Care time: The patient presented to the Emergency Department on the above date and was hospitalized for further evaluation of their emergent condition. - New Patient This patient is new to me today: Yes Date on this admission: 03/09/19 - Critical Care Critical Care patient: No
[2019-03-08] MEDS ORDERED: SODIUM CHLORIDE 1,000 ML IV SCH (23:00)
[2019-03-08] MEDS: ACETAMINOPHEN 325 MG TABLET (FP) PO PRN (23:19)
[2019-03-09] MEDS ORDERED: PIPERACILLIN/TAZOB 3.375 GM 3.375 GM in DEXTROSE 5%-WATER - 50 ML IVPB ONE (00:24)
[2019-03-09 00:56] VITALS: BMI 20.9
[2019-03-09 07:39] LABS: HEMOGLOBIN 11.7 GM/dl (10.7-15.3); MCH 30.8 pg (25.7-33.7); MCHC 33.5 g/dl (32.0-36.0); PLATELET COUNT 206 K/MM3 (134-434); RDW 12.7 % (11.6-15.6); WHITE BLOOD COUNT 4.8 K/mm3 (4.0-10.8)
[2019-03-09 07:52] LABS: ANION GAP 7 MMOL/L (8-16); BLOOD UREA NITROGEN 15 mg/dl (7-18); CALCIUM 8.9 mg/dl (8.5-10); CHLORIDE 105 mmol/L (98-107); CO2 26 mmol/L (21-32); CREATININE 0.7 mg/dl (0.55-1.3); GLUCOSE,RANDOM 83 mg/dl (74-106); POTASSIUM 3.7 mmol/L (3.5-5.1); SODIUM 138 mmol/L (136-145)
--- NOTE | 2019-03-09 08:58 | CON.ORTH ---
Consult Consult Specialty:: orthopedics Reason for Consultation:: right index finger infection - History of Present Illness Chief Complaint: right index finger pain History of Present Illness: 43-year-old female admitted for right index finger infection. Patient initially injured the finger cutting lettuce on a kitchen slicing tool last Saturday. Was seen in the ER and bandaged and started on by mouth antibiotics. By Saturday, noted increasing pain and swelling in the finger. Denies any fever, chills, nausea, vomiting or night sweats. Patient presented to the ER and was admitted. Notes today that finger is feeling significantly improved from last night. - History Source History Provided By: Patient, Medical Record - Past Medical History Pulmonary: Yes: Asthma ...LMP: 02/07/19 Rheumatology: Yes: Lupus ENT: Yes: Allergic Rhinitis - Past Surgical History Past Surgical History: Yes: Tonsillectomy - Alcohol/Substance Use Hx Alcohol Use: No - Smoking History Smoking history: Never smoked Have you smoked in the past 12 months: No Home Medications - Allergies Allergies/Adverse Reactions: Allergies Allergy/AdvReac Type Severity Reaction Status Date / Time No Known Drug Allergies Allergy Verified 03/08/19 19:38 - Home Medications Home Medications: Ambulatory Orders Amoxicillin/Potassium Clav [Augmentin 875-125 Tablet] 1 each PO BID #14 tablet 03/06/19 Physical Exam for Ortho Vital Signs: Vital Signs Temperature 97.8 F 03/09/19 04:53 Pulse Rate 60 03/09/19 04:53 Respiratory Rate 18 03/09/19 04:53 Blood Pressure 110/65 03/09/19 04:53 O2 Sat by Pulse Oximetry (%) 99 03/09/19 05:59 Constitutional: Yes: Well Nourished, No Distress, Calm Respiratory: Yes: Regular Gastrointestinal: No: Distention Extremities: Yes: Other (Examination of the right index finger demonstrates a oblique laceration encompassing a portion of the nailbed and surrounding skin. There is no active drainage. The laceration is approximately 5 mm x 7 mm. There is erythema tracking up the index finger just past the PIP joint. There is mild diffuse swelling. Sensation is grossly intact light touch. Capillary refill is less than 2 seconds. Flexion and extension are intact albeit with limited range of motion.) Labs: CBC, BMP 03/09/19 06:45 03/09/19 06:45 Imaging - Results X-ray: Report Reviewed, Image Reviewed (Small loss of bone at distal phalanx.) Problem List - Problems (1) Cellulitis Code(s): L03.90 - CELLULITIS, UNSPECIFIED Qualifiers: Site of cellulitis: extremity Site of cellulitis of extremity: upper extremity Laterality: right Qualified Code(s): L03.113 - Cellulitis of right upper limb Assessment/Plan I discussed today's findings with Abeer. Her exam today is most consistent with cellulitis. While osteomyelitis is possible in this situation, it is unlikely given the short time of exposure, adequate soft-tissue coverage and location of injury. She has seen good clinical improvement with a short course of antibiotics. She is awaiting ID consultation. Most likely, she can stay for 1 day of IV antibiotics and be discharged tomorrow on by mouth antibiotics. If she stays still tomorrow, Dr. Laureano will see her, otherwise, she can come to the office this week. Continue antibiotics at this time. Wound redressed with Xeroform dressing.
--- NOTE | 2019-03-09 09:52 | PN ---
Progress Note (short form) - Note Progress Note: ID CONSULT DICTATED CELLULITIS R INDEX FINGER S/P LACERATION EMPIRIC VANCOMYCIN /UNASYN
[2019-03-09] MEDS ORDERED: HEPARIN NA (PORCINE) 5,000 UNITS/ML 1ML VIAL SQ SCH (10:00)
[2019-03-09] MEDS ORDERED: AMPICILLIN NA/SULBACTAM NA 3 GM VIAL ONE ×2 (10:20→14:18)
[2019-03-09] MEDS ORDERED: SODIUM CHLORIDE 100 ML IVPB ONE ×2 (10:20→14:18)
[2019-03-09] MEDS ORDERED: DIPHTH,PERTUSS(ACELL),TET 0.5 ML DISP.SYRIN IM ONE (10:30)
[2019-03-09] MEDS: AMPICILLIN NA/SULBACTAM NA 3 GM in SODIUM CHLORIDE 100 ML IVPB SCH ×3 (10:38→20:24)
--- NOTE | 2019-03-09 10:48 | CONS ---
DATE OF CONSULTATION: DATE OF DICTATION: 03/09/2019 HISTORY: The patient is a 43-year-old previously healthy female with a history of SLE not on medications evaluated for left index finger cellulitis. The patient sustained a laceration injury to her left index finger on March 06, 2019. She had been seen in the emergency room and was discharged home on Augmentin. Despite the Augmentin, she had worsening erythema, warmth, and swelling of the left index finger. She returned to the emergency room and was admitted with cellulitis. She was seen in consultation by Hand Surgery. Cultures were obtained. She was empirically treated with vancomycin and Unasyn. She denies any associated fever or chills. PAST MEDICAL HISTORY: Positive for SLE. MEDICATIONS: Not on medications. ALLERGIES: No known allergies. LABORATORY DATA: White count 4.8, hematocrit 35, platelet count 206, creatinine 0.7. ESR 8. Blood cultures preliminarily negative. PHYSICAL EXAMINATION: General: She is awake and alert in no acute distress. Vital Signs: Temperature 97.8, blood pressure 110/65, pulse 60 and regular, respirations 18 per minute. HEENT: Sclerae anicteric. Heart: Sounds S1, S2. Lungs: Clear. Abdomen: Soft and nontender. Extremities: Examination of the right index finger, there is diffuse swelling of the left index finger with erythema. Decreased range of motion. Unable to fully clench the fist. There is an avulsion present at the distal aspect of the finger involving the nailbed with bloody discharge. No gross purulence is noted. No crepitus or fluctuance. No lymphangitic streaking. IMPRESSION: Cellulitis of the right index finger. PLAN: Await culture results. Empiric antibiotic coverage with vancomycin and Unasyn. Hand Surgery follow up. We will follow. Thank you for the kind referral. EDELMIRA MATTHEW M.D. [id number]
[2019-03-09] MEDS: VANCOMYCIN 1 GRAM (PRE-DOCKED) 1,000 MG/250 ML BAG IVPB SCH ×2 (11:43→21:36)
--- NOTE | 2019-03-09 13:36 | PN ---
Physical Exam: SUBJECTIVE: Patient seen and examined. Pain is well-managed. OBJECTIVE: Vital Signs Period Temp Pulse Resp BP Sys/Smith Pulse Ox Last 24 Hr 97.8 F-98 F 60-73 16-18 110-130/65-90 99-100 GENERAL: The patient is awake, alert, and fully oriented, in no acute distress. LUNGS: Breath sounds equal, clear to auscultation bilaterally, no wheezes, no crackles, no accessory muscle use. HEART: Regular rate and rhythm, S1, S2 ABDOMEN: Soft, nontender, nondistended RUE: Second finger deeply erythematous from tip to base, swollen, 2/5 sensory, minimal flexion secondary to pain and swelling; nail avulsed; bloody wound bed EXTREMITIES: 2+ pulses, warm, well-perfused, no edema. NEUROLOGICAL: Cranial nerves II through XII grossly intact. Normal speech, gait not observed. Laboratory Results - last 24 hr 03/08/19 03/08/19 03/08/19 20:16 20:16 20:16 WBC 6.4 RBC 4.33 Hgb 12.8 Hct 39.7 MCV 91.7 MCH 29.6 MCHC 32.2 RDW 12.9 Plt Count 272 MPV 10.3 Absolute Neuts (auto) 2.6 Neutrophils % 40.1 L Lymphocytes % 50.3 H Monocytes % 9.0 Eosinophils % 0.1 Basophils % 0.5 ESR Sodium 138 Potassium 3.6 Chloride 98 Carbon Dioxide 29 Anion Gap 11 BUN 14 Creatinine 0.6 Creat Clearance w eGFR 109.11 Random Glucose 82 Calcium 9.8 Total Bilirubin 0.5 AST 27 ALT 23 Alkaline Phosphatase 76 C-Reactive Protein Total Protein 8.0 Albumin 4.6 Urine HCG, Qual Negative 03/09/19 03/09/19 03/09/19 06:45 06:45 06:45 WBC 4.8 RBC 3.80 Hgb 11.7 Hct 35.0 MCV 92.0 MCH 30.8 MCHC 33.5 RDW 12.7 Plt Count 206 MPV 10.0 Absolute Neuts (auto) Neutrophils % Lymphocytes % Monocytes % Eosinophils % Basophils % ESR Sodium 138 Potassium 3.7 Chloride 105 Carbon Dioxide 26 Anion Gap 7 L BUN 15 Creatinine 0.7 Creat Clearance w eGFR 91.33 Random Glucose 83 Calcium 8.9 Total Bilirubin AST ALT Alkaline Phosphatase C-Reactive Protein < 0.3 Total Protein Albumin Urine HCG, Qual 03/09/19 06:45 WBC RBC Hgb Hct MCV MCH MCHC RDW Plt Count MPV Absolute Neuts (auto) Neutrophils % Lymphocytes % Monocytes % Eosinophils % Basophils % ESR 8 Sodium Potassium Chloride Carbon Dioxide Anion Gap BUN Creatinine Creat Clearance w eGFR Random Glucose Calcium Total Bilirubin AST ALT Alkaline Phosphatase C-Reactive Protein Total Protein Albumin Urine HCG, Qual Active Medications Generic Name Dose Route Start Last Admin Trade Name Freq PRN Reason Stop Dose Admin Acetaminophen 650 mg 03/08/19 22:54 03/08/19 23:19 Tylenol - PO 650 mg Q6H PRN Administration PAIN Vancomycin HCl 1,000 mg in 250 mls @ 166.667 mls/hr 03/09/19 10:30 03/09/19 11:43 Vancomycin (Pre-Docked) IVPB 166.667 mls/hr Q12H JOANNE Administration Protocol Ampicillin Sodium/Sulbactam 100 mls @ 200 mls/hr 03/09/19 10:00 03/09/19 10: 38 Sodium 3 gm/ Sodium Chloride IVPB 200 mls/hr Q6H-IV JOANNE Administration ASSESSMENT/PLAN 43 year-old female with a PMH significant for asthma, lupus, lung surgery, recent bilateral turbinate reduction and septoplasty (02/13/19). Admitted for cellulitis of right second finger. Cellulitis right second finger Avulsion injury --was originally seen in ED on 03/06, cut finger on a cured meats supervisor; treated and released with prescription for augmentin with followup with hand surgeon Dr. Laureano --returned to ED on 03/08 with worsening pain and erythema; no fever, no leukocytosis --seen and evaluated today by reilly Duff clinical improvement --per ID, continue empiric Vanc and Unasyn; blood cultures pending Lupus --stable; not on regular medication Asthma --stable FEN Fluids: PO intake adequate Electrolytes: replete as indicated Nutrition: regular DVT prophylaxis: subq lovenox Dispo: continues to require inpatient care. Full code. Visit type - Emergency Visit Emergency Visit: Yes ED Registration Date: 03/08/19 Care time: The patient presented to the Emergency Department on the above date and was hospitalized for further evaluation of their emergent condition. - New Patient This patient is new to me today: Yes Date on this admission: 03/09/19 - Critical Care Critical Care patient: No
[2019-03-09] MEDS: ENOXAPARIN NA (PORCINE) 40 MG/0.4 ML DISP.SYRIN SQ SCH (14:21)
[2019-03-09] MEDS: ACETAMINOPHEN 325 MG TABLET (FP) PO PRN (20:22)
[2019-03-10] MEDS ORDERED: PT OWN MED DRAWER 7, Y5N ONE (02:05)
[2019-03-10] MEDS: AMPICILLIN NA/SULBACTAM NA 3 GM in SODIUM CHLORIDE 100 ML IVPB SCH ×3 (02:19→14:18)
[2019-03-10] MEDS: ENOXAPARIN NA (PORCINE) 40 MG/0.4 ML DISP.SYRIN SQ SCH (09:40)
[2019-03-10] MEDS: VANCOMYCIN 1 GRAM (PRE-DOCKED) 1,000 MG/250 ML BAG IVPB SCH (10:16)
--- NOTE | 2019-03-10 11:00 | PN ---
Progress Note (short form) - Note Progress Note: patient is seen and examined today. She feels much better. She has minimal discomfort. She has been on intravenous antibiotics. She is afebrile. The finger is examined. There is no evidence of continued infection. There is a partial oblique amputation of the distal aspect of the finger with no exposed bone. This does significantly affect the sterile matrix of the nailbed. No pus. She is able to nearly fully flex the finger now. No flexor tendon sheath tenderness. Impression: Partial digital amputation with resolved cellulitis Plan: I have recommended continued dressings on the finger. As far as I am concerned she can be discharged on oral antibodies at this time but she should follow-up with me in the office in 1-2 days [phone]
[2019-03-10 13:58] VITALS: BP 115/74; PULSE 84; TEMP 97.8
[2019-03-10] MEDS ORDERED: AMPICILLIN NA/SULBACTAM NA 3 GM VIAL ONE (14:15)
[2019-03-10] MEDS ORDERED: SODIUM CHLORIDE 100 ML IVPB ONE (14:15)
--- NOTE | 2019-03-10 14:19 | DS ---
Physical Exam: SUBJECTIVE: Patient seen and examined at bedside. Pain is much improved. No fever, sweats, chills. OBJECTIVE: Vital Signs Period Temp Pulse Resp BP Sys/Smith Pulse Ox Last 24 Hr 97.8 F-98.7 F 60-84 16-19 113-115/60-74 100-100 PHYSICAL EXAM GENERAL: The patient is awake, alert, and fully oriented, in no acute distress. LUNGS: Breath sounds equal, clear to auscultation bilaterally, no wheezes, no crackles, no accessory muscle use. HEART: Regular rate and rhythm, S1, S2 ABDOMEN: Soft, nontender, nondistended RUE: right second finger erythema resolving, increased flexion, no active bleeding EXTREMITIES: 2+ pulses, warm, well-perfused, no edema. NEUROLOGICAL: Cranial nerves II through XII grossly intact. Normal speech, gait not observed LABS CBCD WBC 4.8 K/mm3 (4.0-10.8) 03/09/19 06:45 RBC 3.80 M/mm3 (3.60-5.2) 03/09/19 06:45 Hgb 11.7 GM/dl (10.7-15.3) 03/09/19 06:45 Hct 35.0 % (32.4-45.2) 03/09/19 06:45 MCV 92.0 fl (80-96) 03/09/19 06:45 MCHC 33.5 g/dl (32.0-36.0) 03/09/19 06:45 RDW 12.7 % (11.6-15.6) 03/09/19 06:45 Plt Count 206 K/MM3 (134-434) 03/09/19 06:45 MPV 10.0 fl (7.5-11.1) 03/09/19 06:45 CMP Sodium 138 mmol/L (136-145) 03/09/19 06:45 Potassium 3.7 mmol/L (3.5-5.1) 03/09/19 06:45 Chloride 105 mmol/L (98-107) 03/09/19 06:45 Carbon Dioxide 26 mmol/L (21-32) 03/09/19 06:45 Anion Gap 7 MMOL/L (8-16) L 03/09/19 06:45 BUN 15 mg/dl (7-18) 03/09/19 06:45 Creatinine 0.7 mg/dl (0.55-1.3) 03/09/19 06:45 Creat Clearance w eGFR 91.33 (>60) 03/09/19 06:45 Calcium 8.9 mg/dl (8.5-10) 03/09/19 06:45 Total Bilirubin 0.5 mg/dl (0.2-1) 03/08/19 20:16 AST 27 U/L (15-37) 03/08/19 20:16 ALT 23 U/L (13-61) 03/08/19 20:16 Alkaline Phosphatase 76 U/L (45-117) 03/08/19 20:16 Total Protein 8.0 g/dl (6.4-8.2) 03/08/19 20:16 Albumin 4.6 g/dl (3.4-5.0) 03/08/19 20:16 HOSPITAL COURSE: Date of Admission:03/08/19 Date of Discharge: 03/10/19 43 year-old female with a PMH significant for asthma, lupus, lung surgery, recent bilateral turbinate reduction and septoplasty (02/13/19). Admitted for cellulitis of right second finger. 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 Laureano --returned to ED on 03/08 with worsening pain and erythema; no fever, no leukocytosis --seen and evaluated today by Dr. Ayala, sees clinical improvement --treated while inpatient with empiric Vanc and Unasyn --discharged on Bactrim DS for additional 7 days of treatment --f/u with ortho in 1-2 days Lupus --stable; not on regular medication Asthma --stable Minutes to complete discharge: 35 Discharge Summary Reason For Visit: CELLULITIS, UNSPECIFIED Current Active Problems Cellulitis (Acute) Finger injury (Acute) Condition: Improved - Instructions Diet, Activity, Other Instructions: A prescription has been sent to your pharmacy for Bactrim which is an antibiotic. Take this medicatin as directed and be sure to finish all the medication. You need to follow up with Dr. Laureano in the next 48 hours. His contact information is enclosed in this discharge packet. Return to the emergency department for any new or worsening symptoms. Referrals: Juan A Laureano MD [Staff Physician] - Disposition: HOME - Home Medications Comprehensive Discharge Medication List: Ambulatory Orders Sulfamethoxazole/Trimethoprim [Bactrim Ds -] 1 tab PO BID #14 tablet 03/10/19 This patient is new to me today: No Emergency Visit: Yes ED Registration Date: 03/08/19 Care time: The patient presented to the Emergency Department on the above date and was hospitalized for further evaluation of their emergent condition. Critical Care patient: No - Discharge Referral Referred to [facility] No
== END 2019-03-10 15:09 | disposition home or self-care (01) | DRG 383 ==
LOC: FER 19:36 → FM/S 21:31
PROVIDERS: ADMIT Internal Medicine; ATTEND Nurse Practitioner Acute Care
DX: L03.113 Cellulitis of right upper limb (principal); L93.0 Discoid lupus erythematosus
CPT/HCPCS: 36415; 80048; 80053; 84703; 85025; 85027; 85651; 86140; 87040; 90715; 99282-25; J7030

== ENCOUNTER 2019-03-13 15:12 | Emergency (ER) | payer OTHER ==
[2019-03-13 15:28] VITALS: BP 121/82; PULSE 92; TEMP 98.3; BMI 20.5
--- NOTE | 2019-03-13 16:47 | PDOC ---
Documentation entered by Fiona Cardenas SCRIBE, acting as scribe for Cyndi Jernigan MD. Cyndi Jernigan MD: This documentation has been prepared by the karoibRonald carbajal Lincy, SCRIBE, under my direction and personally reviewed by me in its entirety. I confirm that the documentation accurately reflects all work, treatment, procedures, and medical decision making performed by me. History of Present Illness - General Chief Complaint: Wound Stated Complaint: "I THINK MY FINGER IS INFECTED" Time Seen by Provider: 03/13/19 15:20 History Source: Patient Exam Limitations: No Limitations - History of Present Illness Initial Comments: 03/13/19 16:13 The patient is a 43 year-old female with a past medical history significant for asthma, lupus, lung surgery, recent bilateral turbinate reduction and septoplasty (02/13/19) presents to the emergency department with right 2nd digit pain. The patient reports she woke up today with pain to the right 2nd digit. When she took off the dressing, she noticed a yellowish discharge from the wound , with increased pain throughout the day. The patient reports the finger is flex in position, with decreased ROM. Denies fever, chills, nausea, vomiting. The patient was seen at the ER on 03/06 for avulsion of the right index finger, a surgical dressing was placed, and the patient was discharged home with a prescription for amoxicillin. The patient returned to the ER on 03/08, with worsening pain to the finger. The patient was admitted for cellulitis and IV abx. The patient was given Vanc and Unasyn during her stay and discharged on with a prescription for Bactrim 7 day course. Allergies: NKDA PCP: Dr. Marcum. Past History - Past Medical History Allergies/Adverse Reactions: Allergies Allergy/AdvReac Type Severity Reaction Status Date / Time No Known Drug Allergies Allergy Verified 03/13/19 15:13 Home Medications: Ambulatory Orders Sulfamethoxazole/Trimethoprim [Bactrim Ds -] 1 tab PO BID #14 tablet 03/10/19 Anemia: No Asthma: Yes Cancer: No Cardiac Disorders: No CVA: No COPD: No CHF: No Dementia: No Diabetes: No GI Disorders: No Disorders: No HTN: No Hypercholesterolemia: No Liver Disease: No Seizures: No Thyroid Disease: Yes - Surgical History Abdominal Surgery: (OVARIAN FIBROIDS) Appendectomy: No Cholecystectomy: No Lung Surgery: Yes (INFECTION; PIECE "CUT OUT" FROM RIGHT) Orthopedic Surgery: Yes (ARTHROSCOPIC LEFT KNEE) - Suicide/Smoking/Psychosocial Hx Smoking History: Never smoked Have you smoked in the past 12 months: No Hx Alcohol Use: No Drug/Substance Use Hx: No Substance Use Type: None Hx Substance Use Treatment: No Review of Systems - Review of Systems Able to Perform ROS?: Yes Comments:: 03/13/19 16:13 Constitutional - Pt denies Fever, Chills, weakness, HEENT: denies vision changes, sore throat Respiratory: Denies cough, sob, hemoptysis Cardiac: denies chest pain, palpitations, lightheadedness, leg swelling Abd/GI: denies abd pain, nausea, vomiting, blood per rectum, melena, diarrhea : denies dysuria, frequency, discharge Musculoskeletal - +right 2nd digit pain, with yellowish discharge. denies back pain, joint swelling skin - denies bruising, erythema, rash neurological: denies headache, numbness, focal weakness, tingling, ataxia, weakness hematologic: denies anemia, easy bruising, easy bleeding. *Physical Exam - Vital Signs Last Vital Signs Temp Pulse Resp BP Pulse Ox 98.3 F 92 H 18 121/82 100 03/13/19 15:13 03/13/19 15:13 03/13/19 15:13 03/13/19 15:13 03/13/19 15:13 - Physical Exam Comments: 03/13/19 16:38 GENERAL: The patient is in no acute distress. ENT: Ears normal, nares patent, oropharynx clear without exudates. Moist mucous membranes. NECK: Normal range of motion, supple, no nuchal rigidity LUNGS: Breath sounds equal, clear to auscultation bilaterally. No wheezes, and no crackles. HEART: Regular rate and rhythm, normal S1 and S2 without murmur, rub or gallop. ABDOMEN: Soft, nontender, normoactive bowel sounds. No guarding, no rebound. No masses palpable. EXTREMITIES: +right index finger is swollen, macerated, 2 flesh colored blister. Base of the nail bed has fibrinous exudate, no surrounding erythema. No drainage. 2+ radial and ulnar pulse, intact sensation, pain with extension of the finger. NEUROLOGICAL: Cranial nerves II through XII grossly intact. Normal speech. No focal neurological deficits. SKIN: Warm, Dry, normal turgor, no rashes or lesions noted. Medical Decision Making - Medical Decision Making 03/13/19 15:42 Ms Kim is a 43 yo F h/o asthma, lupus, lung surgery, recent bilateral turbinate reduction and septoplasty presenting with increasing finger pain. Pt original injury was on 03/06 when she sustained a cut by a meat washer, was irrigated in the ER and she was started on Augmentin. Pt developed cellulitis, returned to the ER and was started on Vanc and Unasyn x 2 days Discharged on Bactrim Was seen by Dr Laureano yesterday, told to continue bacitracin No systemic signs of illness 03/13/19 15:45 On examination: finger is in the flexed position She is unable to actively extend, I am unable to extend either (limited by pain) 03/13/19 15:51 Call placed to Orthopedics (Dr Ayala) 03/13/19 16:42 Dr ayala has seen this patient in the ER He is not concerned about the appearance of her finger at this point Pt should continue local wound care, Bactrim DS, Follow up with Dr Laureano on Saturday Return to the ER for any other concerns or complaints *DC/Admit/Observation/Transfer Diagnosis at time of Disposition: Finger injury Qualifiers: Encounter type: subsequent encounter Laterality: right Qualified Code(s): S69.91XD - Unspecified injury of right wrist, hand and finger(s), subsequent encounter Cellulitis Qualifiers: Site of cellulitis: extremity Site of cellulitis of extremity: finger Laterality: right Qualified Code(s): L03.011 - Cellulitis of right finger - Discharge Dispostion Disposition: HOME Condition at time of disposition: Stable Decision to Admit order: No - Referrals Referrals: Becca Marcum MD [Primary Care Provider] - - Patient Instructions Printed Discharge Instructions: DI for Wound Infection Additional Instructions: Ms Kim Thank you for coming in to the ER today You were seen by Dr Ayala It seem that your finger FOR NOW is healing as the orthopedic team expects Please take either Motrin 600mg (3 tablets) OR Tylenol 1000mg (2 extra strength tablets) every 4 hours in alternation for pain. Monitor yourself for increasing pain, fevers, drainage, redness along the finger Return to the emergency department immediately with ANY of these symptoms, any new, persistent or worsening symptoms. Continue any medications as previously prescribed by your physician. Please be sure to follow up with Dr. Stanton in the office on SaturdayApril 16 Thank you for coming to the [facility] today for your care. It was a pleasure to see you today. Please note that your evaluation is INCOMPLETE until you follow-up with your doctor. - Post Discharge Activity
== END 2019-03-13 17:18 | disposition home or self-care (01) ==
LOC: FER 15:12
DX: S69.91XD Unspecified injury of right wrist, hand and finger(s), subsequent encounter (principal); L03.011 Cellulitis of right finger; J45.909 Unspecified asthma, uncomplicated; M32.9 Systemic lupus erythematosus, unspecified
CPT/HCPCS: 99282-25

== ENCOUNTER 2019-05-18 18:35 | Emergency (ER) | payer OTHER ==
[2019-05-18 18:44] VITALS: BP 126/65; PULSE 81; TEMP 98.2; BMI 20.5
--- NOTE | 2019-05-18 18:44 | PDOC ---
Rapid Medical Evaluation Chief Complaint: Eye Problem Time Seen by Provider: 05/18/19 18:41 Medical Evaluation: Allergies Allergy/AdvReac Type Severity Reaction Status Date / Time No Known Drug Allergies Allergy Verified 03/13/19 15:13 05/18/19 18:42 I have performed a brief in-person evaluation of this patient. The patient presents with a chief complaint of: bilateral eye itching and burning x 3 days. No relief with Visine Pertinent physical exam findings: mild redness/ white thin discharge I have ordered the following: nothing The patient will proceed to the ED for further evaluation. Discharge Disposition - Diagnosis Itchy eyes - Referrals - Patient Instructions - Post Discharge Activity
--- NOTE | 2019-05-18 19:18 | PDOC ---
History of Present Illness - General Chief Complaint: Eye Problem Stated Complaint: PAIN Time Seen by Provider: 05/18/19 18:41 - History of Present Illness Initial Comments: 05/18/19 19:13 43-year-old female without comorbidities, denies any possibility of presents for evaluation of itchy eyes nasal congestion and stuffy nose 3 days without systemic symptoms Past History - Past Medical History Allergies/Adverse Reactions: Allergies Allergy/AdvReac Type Severity Reaction Status Date / Time No Known Drug Allergies Allergy Verified 05/18/19 18:43 Home Medications: Ambulatory Orders Budesonide [Rhinocort Allergy] 1 spray NS ONCE #1 spray.pump 05/18/19 Cetirizine HCl/Pseudoephedrine [Zyrtec-D Tablet] 1 each PO DAILY #30 tab.er.12h 05/18/19 Olopatadine HCl [Pataday] 1 drop OU DAILY #1 bottle 05/18/19 Anemia: No Asthma: Yes Cancer: No Cardiac Disorders: No CVA: No COPD: No CHF: No Dementia: No Diabetes: No GI Disorders: No Disorders: No HTN: No Hypercholesterolemia: No Liver Disease: No Seizures: No Thyroid Disease: Yes Other medical history: LUPUS - Surgical History Abdominal Surgery: (OVARIAN FIBROIDS) Appendectomy: No Cholecystectomy: No Lung Surgery: Yes (INFECTION; PIECE "CUT OUT" FROM RIGHT) Orthopedic Surgery: Yes (ARTHROSCOPIC LEFT KNEE) - Suicide/Smoking/Psychosocial Hx Smoking History: Never smoked Have you smoked in the past 12 months: No Hx Alcohol Use: No Drug/Substance Use Hx: No Substance Use Type: None Hx Substance Use Treatment: No Review of Systems - Review of Systems HEENTM: Yes: See HPI, Nose Congestion *Physical Exam - Vital Signs Last Vital Signs Temp Pulse Resp BP Pulse Ox 98.2 F 81 16 126/65 97 05/18/19 18:41 05/18/19 18:41 05/18/19 18:41 05/18/19 18:41 05/18/19 18:41 - Physical Exam Comments: 05/18/19 19:14 HEAD: NC/AT EYES: Conjuntiva mildly injected Ears: Canals and TM's normal NOSE: No d/c THROAT: Moist mucous membrances, oral pharanx clear, uvula midline NECK: Supple without adenopathy CARDIAC: S1 S2 LUNGS: CTA Full and Equal breath sounds ABDOMEN: Soft NT ND MS: Full ROM in all joints without edema NEUROLOGIC: No gross sensory or motor deficits, NVID SKIN: Normal color and temperature no lesions or rashes Medical Decision Making - Medical Decision Making 05/18/19 19:15 Seasonal ALLERGIES we'll treat accordingly with ENT follow-up. *DC/Admit/Observation/Transfer Diagnosis at time of Disposition: Itchy eyes, Allergic conjunctivitis - Discharge Dispostion Disposition: HOME Condition at time of disposition: Stable Decision to Admit order: No - Prescriptions Prescriptions: Budesonide [Rhinocort Allergy] 1 spray NS ONCE #1 spray.pump Cetirizine HCl/Pseudoephedrine [Zyrtec-D Tablet] 1 each PO DAILY #30 tab.er.12h Olopatadine HCl [Pataday] 1 drop OU DAILY #1 bottle - Referrals Referrals: Becca Marcum MD [Primary Care Provider] - - Patient Instructions Printed Discharge Instructions: Allergic Rhinitis Additional Instructions: Please use the medication as directed. Return to the emergency room for worsening symptoms and follow-up with ear nose and throat doctor in 1-2 days without fail for further evaluation and treatment options. - Post Discharge Activity
== END 2019-05-18 19:19 | disposition home or self-care (01) ==
LOC: JERFT 18:35
DX: H10.13 Acute atopic conjunctivitis, bilateral (principal)
CPT/HCPCS: 99281-25

== ENCOUNTER 2019-09-03 10:37 | Emergency (ER) | payer OTHER ==
[2019-09-03 10:43] VITALS: BP 120/55; PULSE 84; TEMP 98.2; BMI 20.5
[2019-09-03] MEDS ORDERED: IBUPROFEN 400 MG TABLET (FP) PO ONE ×2 (11:22→11:25)
[2019-09-03] MEDS ORDERED: SULFAMETHOXAZOLE/TRIMETHOPRIM 800MG/160MG D.S. TABLET PO ONE (11:22)
--- NOTE | 2019-09-03 11:22 | PDOC ---
History of Present Illness - General Chief Complaint: Abscess Boil Stated Complaint: ABSCESS BOIL Time Seen by Provider: 09/03/19 10:53 History Source: Patient Exam Limitations: No Limitations - History of Present Illness Initial Comments: 09/03/19 15:31 Patient came for evaluation of abscess to right axilla. States his first time have an issue. States onset was approximately 4 days ago and has been growing and becoming more painful since. States last night came to a point and started to drain some purulent drainage. Came for further evaluation today. Is this a multiple visit Asthma Patient?: No Timing/Duration: unsure Severity: mild, moderate Associated Symptoms: reports: fever/chills Past History - Travel Traveled outside of the country in the last 30 days: No Close contact w/someone who was outside of country & ill: No - Past Medical History Allergies/Adverse Reactions: Allergies Allergy/AdvReac Type Severity Reaction Status Date / Time No Known Drug Allergies Allergy Verified 05/18/19 18:43 Home Medications: Ambulatory Orders Budesonide [Rhinocort Allergy] 1 spray NS ONCE #1 spray.pump 05/18/19 Cetirizine HCl/Pseudoephedrine [Zyrtec-D Tablet] 1 each PO DAILY #30 tab.er.12h 05/18/19 Olopatadine HCl [Pataday] 1 drop OU DAILY #1 bottle 05/18/19 Sulfamethoxazole/Trimethoprim [Bactrim *Ds*] 1 each PO BID #14 tablet 09/03/19 Anemia: No Asthma: Yes Cancer: No Cardiac Disorders: No CVA: No COPD: No CHF: No Dementia: No Diabetes: No GI Disorders: No Disorders: No HTN: No Hypercholesterolemia: No Liver Disease: No Seizures: No Thyroid Disease: Yes - Surgical History Abdominal Surgery: (OVARIAN FIBROIDS) Appendectomy: No Cholecystectomy: No Lung Surgery: Yes (INFECTION; PIECE "CUT OUT" FROM RIGHT) Orthopedic Surgery: Yes (ARTHROSCOPIC LEFT KNEE) - Psycho Social/Smoking Cessation Hx Smoking History: Never smoked Have you smoked in the past 12 months: No Information on smoking cessation initiated: No Hx Alcohol Use: No Drug/Substance Use Hx: No Substance Use Type: None Hx Substance Use Treatment: No Review of Systems - Review of Systems Able to Perform ROS?: Yes Is the patient limited [place] proficient: Yes Constitutional: Yes: Symptoms Reported, See HPI, Chills, Fever HEENTM: Yes: See HPI. No: Symptoms Reported Musculoskeletal: Yes: Symptoms Reported Integumentary: Yes: Symptoms Reported, See HPI, Erythema, Lesions (To right axilla), Lumps All Other Systems: Reviewed and Negative *Physical Exam - Vital Signs Last Vital Signs Temp Pulse Resp BP Pulse Ox 98.2 F 84 18 120/55 L 100 09/03/19 10:41 09/03/19 10:41 09/03/19 10:41 09/03/19 10:41 09/03/19 10:41 - Physical Exam General Appearance: Yes: Nourished, Appropriately Dressed, Apparent Distress, Mild Distress, Moderate Distress HEENT: positive: ALEXANDER, Normal ENT Inspection, TMs Normal, Pharynx Normal Neck: positive: Supple. negative: Tender, Lymphadenopathy (R), Lymphadenopathy (L) Respiratory/Chest: positive: Lungs Clear, Normal Breath Sounds Extremity: positive: Normal Inspection, Normal Range of Motion Integumentary: positive: Normal Color, Erythema (Lesion approximately 2 cm to right lateral axilla pointing/fluctuant and tender.), Swelling Neurologic: positive: mlt II-XII NML intact, Fully Oriented, Alert, Normal Mood/ Affect, Normal Response, Motor Strength 5/5 Moderate Sedation - Post Procedure Assessment Tolerated procedure well: Yes Procedures - Incision and Drainage I&D Site: Right: Axilla (pointing lesion to lateral mid axilla ) Betadine cleansed: Yes Anesthesia: 1% Lidocaine Blade Size: 11 Iodinated Packin/4 in Complications: none Medical Decision Making - Medical Decision Making 09/03/19 15:36 Right axillary abscess incised and drained Discharge - Discharge Information Problems reviewed: No Clinical Impression/Diagnosis: Abscess Condition: Stable Disposition: HOME - Admission No - Additional Discharge Information Prescriptions: Sulfamethoxazole/Trimethoprim [Bactrim *Ds*] 1 each PO BID #14 tablet - Follow up/Referral Referrals: Becca Marcum MD [Primary Care Provider] - - Patient Discharge Instructions Patient Printed Discharge Instructions: DI for Incision and Drainage of a Skin Abscess Additional Instructions: Rest, keep area elevated. Avoid strenuous activity or exercise until wound is healed Use hot soaks to area to bring more blood to the surface and encourage drainage May change dressings as needed to keep clean - trying to avoid removal of packing for 2 days. If packing needs to be changed, return to emergency department or with your followup physician for wound care and evaluation and repacking as needed If packing needs to be removed, then in 2 days, while in the shower remove dressing and quickly pull the packing taken out. Allow water from shower to wash area thoroughly for 2-3 minutes, and pat dry upon exit of shower and replace dressing. Change his dressing daily until the wound is completely healed. May use Tylenol or Motrin for mild pain relief Use stronger medications as directed and prescribed Continue all medications as prescribed Followup with private physician in 2-3 days for wound check Return to emergency Department for worsening swelling, pain, redness, fevers as needed - Post Discharge Activity Work/Back to School Note: Back to Work
[2019-09-03] MEDS ORDERED: SULFAMETHOXAZOLE/TRIMETHOPRIM 800MG/160MG D.S. TABLET ONE (11:27)
== END 2019-09-03 11:30 | disposition home or self-care (01) ==
LOC: JERFT 10:37
PROC: 0H9BXZZ Drainage of Right Upper Arm Skin, External Approach (ICD-10-PCS; principal; 2019-09-03)
DX: L02.411 Cutaneous abscess of right axilla (principal); J45.909 Unspecified asthma, uncomplicated; D21.9 Benign neoplasm of connective and other soft tissue, unspecified
CPT/HCPCS: 87070; 87186; 87205; 99282-25

== ENCOUNTER 2025-04-06 13:33 | Emergency (ER) | payer OTHER ==
[2025-04-06 13:41] VITALS: BP 126/84; PULSE 87; RESP 20; TEMP 98.1; BMI 22.4
== END 2025-04-06 14:28 | disposition home or self-care (01) ==
LOC: JERFT 13:33
DX: R50.9 Fever, unspecified (principal); J06.9 Acute upper respiratory infection, unspecified; R51.9 Headache, unspecified; R05.9 Cough, unspecified; R09.81 Nasal congestion; R09.82 Postnasal drip
CPT/HCPCS: 0241U-QW; 99283-25